=== PATIENT | female | born 1955 | race Hispanic/Latino ===

== ENCOUNTER 2021-12-19 06:05 | Day surgery (SDC) | payer OTHER ==
[2021-12-17 11:57] LABS: BASOPHILS % (AUTO) 0.4 % (0.0-5.0); EOSINOPHILS % (AUTO) 1.8 % (0.0-8.0); LYMPHOCYTES % (AUTO) 33.1 % (21.0-51.0); MEAN CORPUSCULAR HEMOGLOBIN 31.5 pg (27.0-33.0); MEAN CORPUSCULAR HGB CONC 33.8 g/dL (32.0-36.0); MEAN CORPUSCULAR VOLUME 93.2 fL (79-99); MONOCYTES % (AUTO) 6.2 % (3.0-13.0); NEUTROPHILS % (AUTO) 57.9 % (40.0-77.0); PLATELET COUNT (AUTO) 236 K/uL (130-400); RED BLOOD CELL COUNT(AUTO) 4.29 MIL/uL (4.00-5.50); WHITE BLOOD COUNT (AUTO) 7.2 K/uL (4.8-10.8)
[2021-12-17 12:10] LABS: INR 0.95 (0.85-1.15); PROTHROMBIN TIME 10.4 SEC (9.6-11.6)
[2021-12-17 12:11] LABS: CREATININE 0.6 mg/dL (0.5-1.5); PARTIAL THROMBOPLASTIN TIME 28.8 SEC (26.3-35.5); POTASSIUM 4.2 mmol/L (3.5-5.1)
[2021-12-17 12:16] LABS: APPEARANCE,URINE CLEAR (CLEAR); BILIRUBIN,URINE NEGATIVE (NEGATIVE); COLOR,URINE YELLOW (YELLOW); GLUCOSE, URINE (UA) NEGATIVE (NEGATIVE); KETONES,URINE NEGATIVE (NEGATIVE); LEUKOCYTE ESTERASE ,URINE NEGATIVE (NEGATIVE); NITRATE,URINE NEGATIVE (NEGATIVE); OCCULT BLOOD,URINE NEGATIVE (NEGATIVE); PH,URINE 6.5 (5.0-8.0); PROTEIN,URINE NEGATIVE (NEGATIVE); UROBILINOGEN,URINE 0.2 mg/dL (0.2-1.0)
[2021-12-17 12:34] LABS: B-TYPE NATRIURETIC PEPTIDE 27 pg/mL (0-100)
[~2021-12-19] VITALS: Ht 152.4 cm; Wt 85.3 kg
[2021-12-19] VITALS (9 sets, daily range): BP systolic 102–180; BP diastolic 50–86
[~2021-12-19 06:05] MED LIST: ASPI-1443 PO; ATOR40TA71 PO; FISH1CAP63 PO; LISI20TA24 PO; METO-408 PO; RANO500T3 PO; VITAMIN D PO
[2021-12-19] MEDS ORDERED: 0.9%NACL 1000ML 1,000 ML IV ONE (06:14)
[2021-12-19] MEDS ORDERED: NITROGLYCERIN 50MG VIAL ONE (07:05)
[2021-12-19] MEDS ORDERED: IOHEXOL-350 50ML VIAL IV ONE (07:05)
[2021-12-19] MEDS ORDERED: IOHEXOL 350 MG/ML 100ML INFUS..BTL IV ONE (07:05)
[2021-12-19] MEDS ORDERED: HEPARIN 10,000 UNIT/10ML (1,000 UNIT/ML) VIAL ONE (07:05)
[2021-12-19] MEDS ORDERED: LIDOCAINE HCL 400MG/20ML VIAL ONE (07:06)
[2021-12-19] MEDS ORDERED: MIDAZOLAM HCL 1 MG/ML 2ML VIAL ONE (07:36)
[2021-12-19] MEDS ORDERED: FENTANYL CITRATE PF 50 MCG/1 ML 2ML VIAL ONE ×2 (07:36→08:48)
[2021-12-19] MEDS ORDERED: 0.9%NACL 1000ML 1,000 ML IV SCH ×2 (08:00→08:30)
[2021-12-19] MEDS ORDERED: HYDRALAZINE 20MG/ML VIAL ONE (08:13)
== END 2021-12-19 15:30 | disposition home or self-care (01) ==
LOC: DAH 06:05
PROVIDERS: ATTEND Internal Medicine
DX: I25.118 Atherosclerotic heart disease of native coronary artery with other forms of angina pectoris (principal); I10 Essential (primary) hypertension; E78.5 Hyperlipidemia, unspecified; E66.01 Morbid (severe) obesity due to excess calories; Z68.38 Body mass index [BMI] 38.0-38.9, adult; Z79.82 Long term (current) use of aspirin; Z79.899 Other long term (current) drug therapy; Z98.890 Other specified postprocedural states; Z79.01 Long term (current) use of anticoagulants
CPT/HCPCS: 36415; 71045; 80048; 81003; 82948 ×2; 83880; 85025; 85610; 85730; 93005; 93458; C1760; C1769; C1894 ×2; J0360; J1644 ×2; J2250; J3010 ×2; J3490 ×2; J7030; 99156; 99157; Q9967

== ENCOUNTER → 2022-01-19 | Outpatient (CLI) | payer OTHER ==
[~2022-01-19] MED LIST changes: -RANO500T3 PO
== END | disposition home or self-care (01) ==
LOC: RAH 11:18
PROVIDERS: ATTEND Internal Medicine
DX: L76.32 Postprocedural hematoma of skin and subcutaneous tissue following other procedure (principal)
CPT/HCPCS: 76882

== ENCOUNTER → 2023-07-30 | Outpatient (CLI) | payer MEDICARE | END | disposition home or self-care (01) | LOC: SHCH 07:38 | PROVIDERS: ATTEND Student in an Organized Health Care Education/Training Program | DX: R01.1 Cardiac murmur, unspecified (principal); I10 Essential (primary) hypertension; E11.9 Type 2 diabetes mellitus without complications; E78.5 Hyperlipidemia, unspecified | CPT/HCPCS: 93306 ==

== ENCOUNTER → 2023-09-06 | Outpatient (CLI) | payer MEDICARE ==
[2023-09-06 12:31] LABS: CHOLESTEROL 169 mg/dL (<200); HDL CHOLESTEROL 58 mg/dL (35-85); LDL DIRECT 82 mg/dL (0-99); TRIGLYCERIDES 182 mg/dL (30-200)
== END | disposition home or self-care (01) ==
LOC: LAB 08:56
PROVIDERS: ATTEND Student in an Organized Health Care Education/Training Program
DX: E78.5 Hyperlipidemia, unspecified (principal)
CPT/HCPCS: 36415; 80061

== ENCOUNTER → 2023-10-20 | Outpatient (CLI) | payer MEDICARE ==
[2023-10-20 12:32] LABS: ALBUMIN 3.6 g/dL (3.5-5.0); BILIRUBIN,TOTAL 0.6 mg/dL (0.2-1.0); CREATININE 0.6 mg/dL (0.5-1.5); POTASSIUM 4.3 mmol/L (3.5-5.1); TOTAL PROTEIN, SERUM 7.2 g/dL (6.0-8.3)
== END | disposition home or self-care (01) ==
LOC: LAB 09:00
PROVIDERS: ATTEND Student in an Organized Health Care Education/Training Program
DX: R94.39 Abnormal result of other cardiovascular function study (principal); R03.0 Elevated blood-pressure reading, without diagnosis of hypertension; I10 Essential (primary) hypertension
CPT/HCPCS: 36415; 80053; 80061

== ENCOUNTER → 2023-10-28 | Outpatient (CLI) | payer MEDICARE ==
[~2023-10-28] MED LIST changes: +METOPROLOL TARTRATE 1 MG/ML 5ML VIAL IV ONE
== END | disposition home or self-care (01) ==
LOC: RAH 10:04
PROVIDERS: ATTEND Student in an Organized Health Care Education/Training Program
DX: R94.39 Abnormal result of other cardiovascular function study (principal); R03.0 Elevated blood-pressure reading, without diagnosis of hypertension; M47.815 Spondylosis without myelopathy or radiculopathy, thoracolumbar region
CPT/HCPCS: 75574; J3490

== ENCOUNTER → 2024-08-16 | Outpatient (CLI) | payer MEDICARE ==
[~2024-08-16] MED LIST changes: -METOPROLOL TARTRATE 1 MG/ML 5ML VIAL IV ONE
[2024-08-16 12:51] LABS: CHOLESTEROL 124 mg/dL (<200); HDL CHOLESTEROL 57 mg/dL (35-85); LDL DIRECT 61 mg/dL (0-99); TRIGLYCERIDES 94 mg/dL (30-200)
== END | disposition home or self-care (01) ==
LOC: LAB 08:40
PROVIDERS: ATTEND Student in an Organized Health Care Education/Training Program
DX: E78.5 Hyperlipidemia, unspecified (principal)
CPT/HCPCS: 36415; 80061